=== PATIENT | female | born 1950 ===

== ENCOUNTER 2017-10-30 10:40 | Inpatient (IN) | payer OTHER ==
--- NOTE | 2017-10-30 10:51 | C.PDOC ---
History Of Present Illness 67-year-old female, PMHx includes appendectomy, presents to the emergency department with complaints of right sided abdominal pain ongoing for the past five days, associated with nausea. Pt notes abdominal pain is throbbing, and that she was sent in by PMD: Dr. Chester for further imaging and labs. Patient denies any vomiting, vaginal d/c, fever, symptoms, chills, back pain, chest pain or any other associated symptoms. no other complaints at this time. Time Seen by Provider: 10/30/17 10:50 Chief Complaint (Nursing): Abdominal Pain History Per: Patient History/Exam Limitations: no limitations Current Symptoms Are (Timing): Still Present Past Medical History Reviewed: Historical Data, Nursing Documentation, Vital Signs Vital Signs: Last Vital Signs Temp 98.2 F 10/30/17 21:52 Pulse 69 10/30/17 21:52 Resp 18 10/30/17 21:52 BP 153/74 H 10/30/17 21:52 Pulse Ox 96 10/30/17 21:52 - Medical History PMH: Arthritis, HTN, Hypercholesterolemia, Chronic Kidney Disease Surgical History: Appendectomy Family History: States: No Known Family Hx - Social History Hx Alcohol Use: No Hx Substance Use: No Review Of Systems Constitutional: Negative for: Fever Gastrointestinal: Positive for: Nausea, Abdominal Pain Musculoskeletal: Negative for: Back Pain Neurological: Negative for: Weakness, Numbness Physical Exam - Physical Exam Appears: Non-toxic, No Acute Distress Skin: Warm, Dry, No Rash Head: Atraumatic Eye(s): bilateral: Normal Inspection Nose: Normal Oral Mucosa: Moist Lips: Normal Appearing Neck: Normal ROM Chest: Symmetrical Cardiovascular: Rhythm Regular, No Murmur Respiratory: Normal Breath Sounds, No Accessory Muscle Use Gastrointestinal/Abdominal: Soft, Tenderness (RUQ, RLQ), No Guarding Extremity: Normal ROM, No Deformity Neurological/Psych: Oriented x3, Normal Speech ED Course And Treatment - Laboratory Results Result Diagrams: 10/30/17 11:09 10/30/17 11:09 O2 Sat by Pulse Oximetry: 100 Pulse Ox Interpretation: Normal (RA) - Other Rad US ABD X-Ray: Viewed By Me, Read By Radiologist Interpretation: Accession No. : [id number]. Patient Name / ID : TRUNG DOE / [id number]. Exam Date : 10/30/2017 11:42:56 ( Approved ). Study Comment : Sex / Age : F / 67Y. Creator : Yohana Anna MD. Dictator : Yohana Anna MD. Campus Ambassador : Coating Engineer : Yohana Anna MD. Approver2 : Report Date : 10/30/2017 12:31:14. My Comment : . Date of service: 10/30/2017. HISTORY: ruq pain. COMPARISON: None available. TECHNIQUE: Sonographic evaluation of the right upper quadrant of the abdomen. FINDINGS: LIVER: Measures 15.0 cm in length. Echogenic liver may be seen in setting of hepatic parenchymal disease or fatty infiltration. 5 mm punctate echogenic focus. No focal hepatic mass identified. The main portal vein appears patent with normal directional flow. No intrahepatic bile duct dilatation. GALLBLADDER: No gallstones. No gallbladder wall thickening or pericholecystic edema. Negative sonographic Lim's sign as assessed by the optical glass etcher. COMMON BILE DUCT: Measures 6 mm. PANCREAS: Not well- visualized. RIGHT KIDNEY: Measures cm in length. Normal echogenicity. No calculus, mass, or hydronephrosis. AORTA: Limited visualization of the aorta. Evidence of aneurysmal dilatation of the aorta with measurement of the aorta mid to distal portion approximately 3.4 x 3.8 x 3.1 cm and distal aorta measuring approximately 4.1 x 4.9 x 4.1 cm. Probable extensive thrombus identified involving the distal aorta. IVC: Limited visualization appears grossly unremarkable. OTHER FINDINGS: None . IMPRESSION: Evidence of aneurysmal dilatation of the aorta with measurement of the aorta mid to distal portion approximately 3.4 x 3.8 x 3.1 cm and distal aorta measuring approximately 4.1 x 4.9 x 4.1 cm. Probable extensive thrombus identified involving the distal aorta. Correlate clinically. CTA may be considered for further evaluation if indicated. - CT Scan/US CT ABD PEL Other Rad Studies (CT/US): Read By Radiologist, Radiology Report Reviewed CT/US Interpretation: Accession No. : [id number]. Patient Name / ID : TRUNG DOE / [id number]. Exam Date : 10/30/2017 14:27:13 ( Approved ) . Study Comment : Sex / Age : F / 67Y. Creator : Allison Oropeza. Dictator : Yohana Anna MD. Campus Ambassador : Coating Engineer : Yohana Anna MD. Approver2 : Report Date : 10/30/2017 14:41:41. My Comment : . Date of service: 10/30/17. CTA abdomen pelvis with contrast performed 10/30/17. Indication: Abnormal ultrasound. Comparison: Right upper quadrant ultrasound performed the same day. Technique: Contrast dose: 100 mL Visipaque 320. Total exam DLP: 511.19. Axial computed tomographic angiogram images of the abdomen and pelvis were performed after bolus administration of nonionic intravenous contrast. This CT exam was performed using 1 or more of the falling dose reduction techniques: Automated exposure control, adjustment of the MAA and/or kV according to patient size, and/or use of iterative reconstruction technique. Findings: Limited views of the inferior thorax demonstrates mild bibasilar atelectasis. Small hiatal hernia. 3.7 x 4.0 cm (AP x transverse) (series 3, image 34) aneurysm involving the proximal abdominal aorta. There is additional marked aneurysmal dilatation of the abdominal aorta just distal to the left renal artery takeoff. Aneurysm appears somewhat "Trilobed" spanning approximately 9.8 cm in CC dimension ; largest proximal portion measures approximately 3.6 x 4.1 cm (AP by transverse) and more distal portion measures approximately 4.5 x 5.2 cm. Extensive peripheral thrombus is evident throughout the abdominal aorta and aneurysm sacs. Extent atherosclerotic calcifications present. Bilateral proximal common iliac artery stents are present. Dense atherosclerotic calcifications including left common iliac artery. 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 Apparent aneurysmal dilatation of the superior mesenteric artery origin. The inferior mesenteric artery origin is not identified. Bilateral renal arteries appear patent. Hypoattenuation of the liver compatible with hepatic steatosis. Too small to characterize hepatic hypodensities; statistically likely cysts or hemangiomas. Contracted gallbladder appears otherwise unremarkable. The adrenal glands appear unremarkable. Pancreas appears unremarkable. Two tiny probable splenules, otherwise unremarkable spleen. The kidneys enhance symmetrically. No hydronephrosis or obstructing calculus identified. Probable small left renal cyst. No bulky adenopathy identified. Visualized bowel loops appear within normal limits of caliber without evidence of obstruction. The appendix appears normal. No inflammatory changes are seen in the right lower quadrant to suggest acute appendicitis. No definite free air. The urinary bladder appears unremarkable. The uterus is present with punctate calcifications and probable fibroid. No significant pelvic free fluid is identified. Osseous demineralization. Degenerative changes. Impression: Extensive aneurysmal dilatation involving the abdominal aorta as described above. Extensive peripheral thrombus and atherosclerotic calcifications evident throughout the abdominal aorta and aneurysm sacs. Bilateral common iliac artery stents are present. Dense atherosclerotic calcifications including left common iliac artery. 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 Apparent aneurysmal dilatation of the superior mesenteric artery origin. The inferior mesenteric artery origin is not identified. Recommend correlation with outside imaging to assess for stability of the above findings. Additional findings as above. Medical Decision Making Medical Decision Making: Well appearing 67 yr old female p/w abdominal pain w/ out acute diarrhea or complaints. Given RUQ And RLQ abdominal pain, and sent for primary for CT, will image. No vaginal d/c. No CP or SOB. Plan: * CT Abd/Pel * Bloodwork * US Abdomen * UA * Reassess and Disposition [address], w/ hx of illiac stents pt notes hx of illiac stents, had operation done at [facility] [place]. Does not know previous size of AAA. appreciate surgical consult Per nursing surgical services director- Dr. Orozco (vascular) will follow as consult inpatient we are to admit to medicine and send consult to medicine Dr. Saravanan sellers Per Dr. Coe- to admit to Jose R del rosario Per Dr. Jose R Del Rosario - we are to admit to Phyllis Karimi Appreciate consult w/ Dr. Phyllis Karimi- to admit to his service Disposition - Disposition Disposition: HOSPITALIZED Disposition Time: 20:00 Condition: GOOD - Clinical Impression Clinical Impression: AAA (abdominal aortic aneurysm) - Scribe Statement The provider has reviewed the documentation as recorded by the Scribe (Samantha Farfan) Provider Attestation: All medical record entries made by the Scribe were at my direction and personally dictated by me. I have reviewed the chart and agree that the record accurately reflects my personal performance of the history, physical exam, medical decision making, and the department course for this patient. I have also personally directed, reviewed, and agree with the discharge instructions and disposition.
[2017-10-30 11:14] LABS: BASO # 0.2 K/uL (0.0-0.2); BASO % 2.6 % (0.0-2.0); EOS # 0.2 K/uL (0.0-0.7); EOS % 2.1 % (0.0-4.0); HEMOGLOBIN 12.1 g/dL (11.0-16.0); LYMPH # 3.5 K/uL (1.0-4.3); LYMPH % 43.9 % (20.0-40.0); MEAN CORPUSCULAR HEMOGLOBIN 25.3 pg (27.0-31.0); MEAN CORPUSCULAR HGB CONC 32.9 g/dL (33.0-37.0); MEAN PLATELET VOLUME 8.9 fL (7.2-11.7); MONO # 0.5 K/uL (0.0-0.8); MONO % 5.9 % (0.0-10.0); NEUT # 3.6 K/uL (1.8-7.0); NEUT % 45.5 % (50.0-75.0); RBC 4.78 Mil/uL (3.80-5.20); RED CELL DISTRIBUTION WIDTH 14.7 % (11.5-14.5)
[2017-10-30 11:31] LABS: URINE BACTERIA RARE (<OCC)
[2017-10-30 11:33] LABS: URINE BILIRUBIN NEGATIVE (NEGATIVE); URINE CLARITY Clear (Clear); URINE COLOR YELLOW (YELLOW); URINE GLUCOSE (UA) NEGATIVE (Normal)
[2017-10-30 11:34] LABS: URINE BLOOD NEGATIVE (NEGATIVE); URINE LEUKOCYTE ESTERASE TRACE Leu/uL (Negative); URINE PROTEIN NEGATIVE (NEGATIVE); URINE UROBILINOGEN 0.2 mg/dL (0.2-1.0)
[2017-10-30 11:55] LABS: ALB/GLOB RATIO 1.5 (1.0-2.1); ALBUMIN 4.6 g/dL (3.5-5.0); ALT/SGPT 21 U/L (9-52); AST/SGOT 21 U/L (14-36); BLOOD UREA NITROGEN 20 mg/dL (7-17); CALCIUM 10.5 mg/dl (8.6-10.4); GFR NON-AFRICAN AMERICAN 55; LIPASE 114 U/L (23-300)
[2017-10-30] MEDS ORDERED: Magnesium Sulfate 1 gm in D5W 1 GM/100 ML BAG IVPB ONE ×2 (12:26→12:55)
--- NOTE | 2017-10-30 12:33 | US ---
Date of service: 10/30/2017 HISTORY: ruq pain COMPARISON: None available TECHNIQUE: Sonographic evaluation of the right upper quadrant of the abdomen. FINDINGS: LIVER: Measures 15.0 cm in length. Echogenic liver may be seen in setting of hepatic parenchymal disease or fatty infiltration. 5 mm punctate echogenic focus. No focal hepatic mass identified. The main portal vein appears patent with normal directional flow. No intrahepatic bile duct dilatation. GALLBLADDER: No gallstones. No gallbladder wall thickening or pericholecystic edema. Negative sonographic Lim's sign as assessed by the nuclear physician. COMMON BILE DUCT: Measures 6 mm. PANCREAS: Not well-visualized. RIGHT KIDNEY: Measures cm in length. Normal echogenicity. No calculus, mass, or hydronephrosis. AORTA: Limited visualization of the aorta. Evidence of aneurysmal dilatation of the aorta with measurement of the aorta mid to distal portion approximately 3.4 x 3.8 x 3.1 cm and distal aorta measuring approximately 4.1 x 4.9 x 4.1 cm. Probable extensive thrombus identified involving the distal aorta. IVC: Limited visualization appears grossly unremarkable. OTHER FINDINGS: None . IMPRESSION: Evidence of aneurysmal dilatation of the aorta with measurement of the aorta mid to distal portion approximately 3.4 x 3.8 x 3.1 cm and distal aorta measuring approximately 4.1 x 4.9 x 4.1 cm. Probable extensive thrombus identified involving the distal aorta. Correlate clinically. CTA may be considered for further evaluation if indicated.
[2017-10-30] MEDS ORDERED: Iodixanol 320 mg/ml 150 ml Bottle IV ONE (13:36)
--- NOTE | 2017-10-30 15:58 | CT ---
Date of service: 10/30/17 CTA abdomen pelvis with contrast performed 10/30/17 Indication: Abnormal ultrasound Comparison: Right upper quadrant ultrasound performed the same day. Technique: Contrast dose: 100 mL Visipaque 320 Total exam DLP: 511.19 Axial computed tomographic angiogram images of the abdomen and pelvis were performed after bolus administration of nonionic intravenous contrast. This CT exam was performed using 1 or more of the falling dose reduction techniques: Automated exposure control, adjustment of the MAA and/or kV according to patient size, and/or use of iterative reconstruction technique. Findings: Limited views of the inferior thorax demonstrates mild bibasilar atelectasis. Small hiatal hernia. 3.7 x 4.0 cm (AP x transverse) (series 3, image 34) aneurysm involving the proximal abdominal aorta. There is additional marked aneurysmal dilatation of the abdominal aorta just distal to the left renal artery takeoff. Aneurysm appears somewhat "Trilobed" spanning approximately 9.8 cm in CC dimension ; largest proximal portion measures approximately 3.6 x 4.1 cm (AP by transverse) and more distal portion measures approximately 4.5 x 5.2 cm. Extensive peripheral thrombus is evident throughout the abdominal aorta and aneurysm sacs. Extent atherosclerotic calcifications present. Bilateral proximal common iliac artery stents are present. Dense atherosclerotic calcifications including left common iliac artery. 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 Apparent aneurysmal dilatation of the superior mesenteric artery origin. The inferior mesenteric artery origin is not identified. Bilateral renal arteries appear patent. Hypoattenuation of the liver compatible with hepatic steatosis. Too small to characterize hepatic hypodensities; statistically likely cysts or hemangiomas. Contracted gallbladder appears otherwise unremarkable. The adrenal glands appear unremarkable. Pancreas appears unremarkable. Two tiny probable splenules, otherwise unremarkable spleen. The kidneys enhance symmetrically. No hydronephrosis or obstructing calculus identified. Probable small left renal cyst. No bulky adenopathy identified. Visualized bowel loops appear within normal limits of caliber without evidence of obstruction. The appendix appears normal. No inflammatory changes are seen in the right lower quadrant to suggest acute appendicitis. No definite free air. The urinary bladder appears unremarkable. The uterus is present with punctate calcifications and probable fibroid. No significant pelvic free fluid is identified. Osseous demineralization. Degenerative changes. Impression: Extensive aneurysmal dilatation involving the abdominal aorta as described above. Extensive peripheral thrombus and atherosclerotic calcifications evident throughout the abdominal aorta and aneurysm sacs. Bilateral common iliac artery stents are present. Dense atherosclerotic calcifications including left common iliac artery. 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 Apparent aneurysmal dilatation of the superior mesenteric artery origin. The inferior mesenteric artery origin is not identified. Recommend correlation with outside imaging to assess for stability of the above findings. Additional findings as above.
--- NOTE | 2017-10-30 17:38 | CP.PCM.CON ---
History of Present Illness - History of Present Illness History of Present Illness: PGY-1 vasc surgery note for Dr Toth CC: abdominal pain, AAA by U/S Patient is 67 year old Female with pmhx of AAA, DM, HTN, HLD, gastritis and arthritis that is consulted for abdominal pain. Patient was sent from her primary Dr Coe to the ER. Patient reports her pain started about 2 weeks ago, described more like a gas pain. Patient started experiencing a RLQ pain that started about 5-6 days ago. Patient reports feeling pain in the right inguinal area and right buttocks. Patient admits to nausea and vomiting last night. Patient had nausea since the abdominal pain began two weeks ago. Patient admits to normal bowel movements. Patient denies any urinary problems. Patient denies headache or dizziness. Patient had bilateral iliac artery stents placed 5 years ago. PMD: Dr Coe Pmhx: AAA, DM, HTN, HLD, gastritis Shx: appendectomy, b/l iliac artery stents All: nkda Sochx: admits to smoking 4 cigarettes x 40 years. denies alcohol or illicit drug use Review of Systems - Review of Systems Review of Systems: as indicated in HPI Past Patient History - Past Social History Smoking Status: Light Smoker < 10 Cigarettes Daily - CARDIAC Hx Hypercholesterolemia: Yes Hx Hypertension: Yes - RENAL Hx Chronic Kidney Disease: Yes - ENDOCRINE/METABOLIC Hx Endocrine Disorders: Yes Hx Diabetes Mellitus Type 2: Yes - MUSCULOSKELETAL/RHEUMATOLOGICAL Hx Arthritis: Yes - PSYCHIATRIC Hx Substance Use: No - SURGICAL HISTORY Hx Appendectomy: Yes Meds Allergies/Adverse Reactions: Allergies Allergy/AdvReac Type Severity Reaction Status Date / Time No Known Allergies Allergy Verified 10/30/17 10:48 Physical Exam - Constitutional Appears: Non-toxic, No Acute Distress - Head Exam Head Exam: ATRAUMATIC, NORMAL INSPECTION, NORMOCEPHALIC - Eye Exam Eye Exam: EOMI, Normal appearance - ENT Exam ENT Exam: Mucous Membranes Moist, Normal Exam - Neck Exam Neck exam: Positive for: Normal Inspection - Respiratory Exam Respiratory Exam: NORMAL BREATHING PATTERN. absent: Accessory Muscle Use, Respiratory Distress - GI/Abdominal Exam GI & Abdominal Exam: Soft. absent: Distended, Tenderness Additional comments: left abdominal quadrant palpable aneurysm - Extremities Exam Extremities exam: Positive for: full ROM, normal inspection - Back Exam Back exam: NORMAL INSPECTION - Neurological Exam Neurological exam: Alert, Oriented x3 - Psychiatric Exam Psychiatric exam: Normal Affect, Normal Mood - Skin Skin Exam: Normal Color, Warm Results - Vital Signs Recent Vital Signs: Last Vital Signs Temp 98.2 F 10/30/17 10:44 Pulse 85 10/30/17 14:51 Resp 16 10/30/17 14:51 BP 139/56 L 10/30/17 14:51 Pulse Ox 100 10/30/17 17:24 - Labs Result Diagrams: 10/30/17 11:09 10/30/17 11:09 Labs: Laboratory Results - last 24 hr 10/30/17 10/30/17 10/30/17 11:09 11:09 11:09 WBC 8.0 RBC 4.78 Hgb 12.1 Hct 36.8 MCV 77.0 L MCH 25.3 L MCHC 32.9 L RDW 14.7 H Plt Count 268 MPV 8.9 Neut % (Auto) 45.5 L Lymph % (Auto) 43.9 H [place] % (Auto) 5.9 Eos % (Auto) 2.1 Baso % (Auto) 2.6 H Neut # (Auto) 3.6 Lymph # (Auto) 3.5 [place] # (Auto) 0.5 Eos # (Auto) 0.2 Baso # (Auto) 0.2 Sodium 138 Potassium 3.3 L Chloride 94 L Carbon Dioxide 30 Anion Gap 18 BUN 20 H Creatinine 1.0 Est GFR ( Amer) > 60 Est GFR (Non-Af Amer) 55 Random Glucose 151 H Calcium 10.5 H Magnesium 0.8 L* Total Bilirubin 0.5 AST 21 ALT 21 Alkaline Phosphatase 79 Total Protein 7.7 Albumin 4.6 Globulin 3.1 Albumin/Globulin Ratio 1.5 Lipase 114 Urine Color Yellow Urine Clarity Clear Urine pH 6.0 Ur Specific [place] 1.015 Urine Protein Negative Urine Glucose (UA) Negative Urine Ketones Negative Urine Blood Negative Urine Nitrate Negative Urine Bilirubin Negative Urine Urobilinogen 0.2 Ur Leukocyte Esterase Trace H Urine RBC (Auto) < 1 Urine Bacteria Rare Assessment & Plan - Assessment and Plan (Free Text) Assessment: 67 year old female with pmhx HTN, DM, HLD with trilobed AAA by U/S largest proximal portion measures approximately 3.6x 4.1 cm, more distal portion measuring 4.5 x 5.2cm Plan: - Follow up CT angio - Will make further recommendations after CT angio - Likely need non-emergent endovascular intervention for AAA - Cardiac and medical clearance - medical management as per medical team Plan discussed with Dr Janey Brand, PGY-1 - Date & Time Date: 10/30/17 Time: 17:38
--- NOTE | 2017-10-30 18:13 | CP.PCM.CON ---
Past Patient History - Past Social History Smoking Status: Light Smoker < 10 Cigarettes Daily - CARDIAC Hx Hypercholesterolemia: Yes Hx Hypertension: Yes - RENAL Hx Chronic Kidney Disease: Yes - ENDOCRINE/METABOLIC Hx Endocrine Disorders: Yes Hx Diabetes Mellitus Type 2: Yes - MUSCULOSKELETAL/RHEUMATOLOGICAL Hx Arthritis: Yes - PSYCHIATRIC Hx Substance Use: No - SURGICAL HISTORY Hx Appendectomy: Yes Meds Allergies/Adverse Reactions: Allergies Allergy/AdvReac Type Severity Reaction Status Date / Time No Known Allergies Allergy Verified 10/30/17 10:48 Results - Vital Signs Recent Vital Signs: Last Vital Signs Temp 98.2 F 10/30/17 10:44 Pulse 85 10/30/17 14:51 Resp 16 10/30/17 14:51 BP 139/56 L 10/30/17 14:51 Pulse Ox 100 10/30/17 17:52 - Labs Result Diagrams: 10/30/17 11:09 10/30/17 11:09 Labs: Laboratory Results - last 24 hr 10/30/17 10/30/17 10/30/17 11:09 11:09 11:09 WBC 8.0 RBC 4.78 Hgb 12.1 Hct 36.8 MCV 77.0 L MCH 25.3 L MCHC 32.9 L RDW 14.7 H Plt Count 268 MPV 8.9 Neut % (Auto) 45.5 L Lymph % (Auto) 43.9 H [place] % (Auto) 5.9 Eos % (Auto) 2.1 Baso % (Auto) 2.6 H Neut # (Auto) 3.6 Lymph # (Auto) 3.5 [place] # (Auto) 0.5 Eos # (Auto) 0.2 Baso # (Auto) 0.2 Sodium 138 Potassium 3.3 L Chloride 94 L Carbon Dioxide 30 Anion Gap 18 BUN 20 H Creatinine 1.0 Est GFR ( Amer) > 60 Est GFR (Non-Af Amer) 55 Random Glucose 151 H Calcium 10.5 H Magnesium 0.8 L* Total Bilirubin 0.5 AST 21 ALT 21 Alkaline Phosphatase 79 Total Protein 7.7 Albumin 4.6 Globulin 3.1 Albumin/Globulin Ratio 1.5 Lipase 114 Urine Color Yellow Urine Clarity Clear Urine pH 6.0 Ur Specific [place] 1.015 Urine Protein Negative Urine Glucose (UA) Negative Urine Ketones Negative Urine Blood Negative Urine Nitrate Negative Urine Bilirubin Negative Urine Urobilinogen 0.2 Ur Leukocyte Esterase Trace H Urine RBC (Auto) < 1 Urine Bacteria Rare
--- NOTE | 2017-10-31 08:41 | CP.PCM.PN ---
Subjective - Date & Time of Evaluation Date of Evaluation: 10/31/17 Time of Evaluation: 08:35 - Subjective Subjective: Surgery Pt seen and examined. No acute events. c/o abd pain. CTA taken. Denies weakness , back pain, GI bleeding. Objective - Vital Signs/Intake and Output Vital Signs (last 24 hours): Temp Pulse Resp BP Pulse Ox 98.4 F 56 L 20 122/65 95 10/30/17 23:15 10/31/17 08:01 10/30/17 23:15 10/30/17 23:15 10/30/17 23:15 - Medications Medications: Current Medications Clopidogrel Bisulfate (Plavix) 75 mg PO DAILY FRANKY Metformin HCl (Glucophage) 1,000 mg PO BID FRANKY Metoprolol Succinate (Toprol Xl) 25 mg PO DAILY FRANKY Potassium Chloride (K-Dur 20 Meq Er Tab) 40 meq PO BRK FRANKY Rosuvastatin Calcium (Crestor) 10 mg PO HS FRANKY Last Admin: 10/30/17 22:12 Dose: 10 mg - Labs Labs: 10/30/17 11:09 10/30/17 11:09 - Constitutional Appears: No Acute Distress - Head Exam Head Exam: ATRAUMATIC, NORMAL INSPECTION, NORMOCEPHALIC - Eye Exam Eye Exam: EOMI, Normal appearance, PERRL Pupil Exam: NORMAL ACCOMODATION, PERRL - ENT Exam ENT Exam: Mucous Membranes Moist, Normal Exam - Neck Exam Neck Exam: Full ROM, Normal Inspection. absent: Lymphadenopathy - Respiratory Exam Respiratory Exam: NORMAL BREATHING PATTERN - Cardiovascular Exam Cardiovascular Exam: REGULAR RHYTHM, +S1, +S2. absent: Murmur - GI/Abdominal Exam GI & Abdominal Exam: Soft, Tenderness, Pulsatile Mass. absent: Distended, Firm , Guarding, Rigid - Exam Exam: NORMAL INSPECTION - Extremities Exam Extremities Exam: Full ROM, Normal Capillary Refill, Normal Inspection. absent : Joint Swelling, Pedal Edema - Back Exam Back Exam: NORMAL INSPECTION - Neurological Exam Neurological Exam: Alert, Awake, CN II-XII Intact, Normal Gait, Oriented x3 - Psychiatric Exam Psychiatric exam: Normal Affect, Normal Mood - Skin Skin Exam: Dry, Intact, Normal Color, Warm Assessment and Plan - Assessment and Plan (Free Text) Assessment: 67 year old female with pmhx HTN, DM, HLD with trilobed AAA by U/S largest proximal portion measures approximately 3.6x 4.1 cm, more distal portion measuring 4.[address]: Trilobed 10cm length, 4.5x5.2 , 3.6x4.1cm w extensive thrombus. b/l iliac stent. TAMIE not identified. Plan: -Smoking Cessation - Likely need non-emergent vascular intervention for AAA - Cardiac and medical clearance - medical management as per medical team Will discuss with Dr Toth
[2017-10-31] MEDS: Potassium Chloride 20 mEq ER Tab PO SCH (08:47)
[2017-10-31] MEDS: Metoprolol Succinate 25 mg XL Tab PO SCH (10:21)
[2017-10-31 12:58] LABS: ALB/GLOB RATIO 1.3 (1.0-2.1); ALBUMIN 4.4 g/dL (3.5-5.0); ALT/SGPT 19 U/L (9-52); AST/SGOT 19 U/L (14-36); BLOOD UREA NITROGEN 19 mg/dL (7-17); CALCIUM 10.8 mg/dl (8.6-10.4); GFR NON-AFRICAN AMERICAN > 60
[2017-10-31 14:35] LABS: BASO % 0.3 % (0.0-2.0); EOS # 0.1 K/uL (0.0-0.7); EOS % 2.2 % (0.0-4.0); HEMOGLOBIN 11.8 g/dL (11.0-16.0); LYMPH % 48.2 % (20.0-40.0); MEAN CELL VOLUME 76.9 fL (81.0-99.0); MEAN CORPUSCULAR HEMOGLOBIN 25.6 pg (27.0-31.0); MEAN CORPUSCULAR HGB CONC 33.3 g/dL (33.0-37.0); MEAN PLATELET VOLUME 9.4 fL (7.2-11.7); MONO # 0.4 K/uL (0.0-0.8); MONO % 6.7 % (0.0-10.0); NEUT # 2.7 K/uL (1.8-7.0); NEUT % 42.6 % (50.0-75.0); NRBC % 0.1 % (0.0-2.0); RBC 4.62 Mil/uL (3.80-5.20); RED CELL DISTRIBUTION WIDTH 14.9 % (11.5-14.5); WHITE BLOOD COUNT 6.2 K/uL (4.8-10.8)
[2017-10-31] MEDS: Magnesium Sulfate 1 gm in D5W 1 GM/100 ML BAG IVPB SCH ×4 (14:36→18:22)
--- NOTE | 2017-10-31 14:41 | CP.PCM.PN ---
Subjective - Date & Time of Evaluation Date of Evaluation: 10/31/17 Time of Evaluation: 11:45 - Subjective Subjective: clinically same Objective - Vital Signs/Intake and Output Vital Signs (last 24 hours): Temp Pulse Resp BP Pulse Ox 97.7 F 76 18 137/60 94 L 10/31/17 06:00 10/31/17 12:00 10/31/17 06:00 10/31/17 06:00 10/31/17 06:00 - Medications Medications: Current Medications Clopidogrel Bisulfate (Plavix) 75 mg PO DAILY [facility] Last Admin: 10/31/17 10:20 Dose: 75 mg Magnesium Sulfate/Dextrose (Magnesium Sulfate 1 Gm/100 Ml D5w) 1 gm in 100 mls @ 100 mls/hr IVPB Q1H [facility] Stop: 10/31/17 18:29 Last Admin: 10/31/17 14:36 Dose: 100 mls/hr Metformin HCl (Glucophage) 1,000 mg PO BID [facility] Last Admin: 10/31/17 10:20 Dose: 1,000 mg Metoprolol Succinate (Toprol Xl) 25 mg PO DAILY [facility] Last Admin: 10/31/17 10:21 Dose: 25 mg Potassium Chloride (K-Dur 20 Meq Er Tab) 40 meq PO BRK [facility] Last Admin: 10/31/17 08:47 Dose: 40 meq Rosuvastatin Calcium (Crestor) 10 mg PO HS [facility] Last Admin: 10/30/17 22:12 Dose: 10 mg - Labs Labs: 10/31/17 14:28 10/31/17 12:20 - Constitutional Appears: Well - Head Exam Head Exam: ATRAUMATIC, NORMAL INSPECTION, NORMOCEPHALIC - Eye Exam Eye Exam: EOMI, Normal appearance, PERRL Pupil Exam: NORMAL ACCOMODATION, PERRL - ENT Exam ENT Exam: Mucous Membranes Moist, Normal Exam - Neck Exam Neck Exam: Full ROM, Normal Inspection. 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 Vascular surgeon has requested patient to go to either [facility] or [facility] Continue beta-estee Continue metformin Continue Plavix Continue rosuvastatin KCl supplementations Patient's dimension is 5.2 cm Vascular surgeon for the AAA
--- NOTE | 2017-10-31 16:08 | CP.PCM.PN ---
Subjective - Date & Time of Evaluation Date of Evaluation: 10/31/17 Time of Evaluation: 11:45 - Subjective Subjective: clinically same Objective - Vital Signs/Intake and Output Vital Signs (last 24 hours): Temp Pulse Resp BP Pulse Ox 98 F 64 20 127/66 97 10/31/17 15:00 10/31/17 15:00 10/31/17 15:00 10/31/17 15:00 10/31/17 15:00 - Medications Medications: Current Medications Clopidogrel Bisulfate (Plavix) 75 mg PO DAILY [facility] Last Admin: 10/31/17 10:20 Dose: 75 mg Magnesium Sulfate/Dextrose (Magnesium Sulfate 1 Gm/100 Ml D5w) 1 gm in 100 mls @ 100 mls/hr IVPB Q1H [facility] Stop: 10/31/17 18:29 Last Admin: 10/31/17 15:48 Dose: 100 mls/hr Metformin HCl (Glucophage) 1,000 mg PO BID [facility] Last Admin: 10/31/17 10:20 Dose: 1,000 mg Metoprolol Succinate (Toprol Xl) 25 mg PO DAILY [facility] Last Admin: 10/31/17 10:21 Dose: 25 mg Potassium Chloride (K-Dur 20 Meq Er Tab) 40 meq PO BRK [facility] Last Admin: 10/31/17 08:47 Dose: 40 meq Rosuvastatin Calcium (Crestor) 10 mg PO HS [facility] Last Admin: 10/30/17 22:12 Dose: 10 mg - Labs Labs: 10/31/17 14:28 10/31/17 12:20 - Constitutional Appears: Well - Head Exam Head Exam: ATRAUMATIC, NORMAL INSPECTION, NORMOCEPHALIC - Eye Exam Eye Exam: EOMI, Normal appearance, PERRL Pupil Exam: NORMAL ACCOMODATION, PERRL - ENT Exam ENT Exam: Mucous Membranes Moist, Normal Exam - Neck Exam Neck Exam: Full ROM, Normal Inspection. absent: Lymphadenopathy - Respiratory Exam Respiratory Exam: Decreased Breath Sounds - Cardiovascular Exam Cardiovascular Exam: REGULAR RHYTHM, +S1, +S2 - GI/Abdominal Exam GI & Abdominal Exam: Soft, Diminished Bowel Sounds - Rectal Exam Rectal Exam: Deferred
[2017-11-01] MEDS ORDERED: Iodixanol 320 mg/ml 150 ml Bottle IV ONE (08:42)
[2017-11-01] MEDS: Potassium Chloride 20 mEq ER Tab PO SCH (08:44)
[2017-11-01] MEDS: Metoprolol Succinate 25 mg XL Tab PO SCH (10:34)
[2017-11-01 12:08] LABS: BASO % 0.2 % (0.0-2.0); EOS # 0.1 K/uL (0.0-0.7); EOS % 1.7 % (0.0-4.0); HEMOGLOBIN 11.5 g/dL (11.0-16.0); LYMPH # 2.2 K/uL (1.0-4.3); LYMPH % 37.6 % (20.0-40.0); MEAN CELL VOLUME 76.8 fL (81.0-99.0); MEAN CORPUSCULAR HEMOGLOBIN 25.3 pg (27.0-31.0); MEAN CORPUSCULAR HGB CONC 32.9 g/dL (33.0-37.0); MEAN PLATELET VOLUME 9.4 fL (7.2-11.7); MONO # 0.5 K/uL (0.0-0.8); MONO % 7.8 % (0.0-10.0); NEUT # 3.1 K/uL (1.8-7.0); NEUT % 52.7 % (50.0-75.0); RBC 4.57 Mil/uL (3.80-5.20); RED CELL DISTRIBUTION WIDTH 14.7 % (11.5-14.5); WHITE BLOOD COUNT 5.8 K/uL (4.8-10.8)
[2017-11-01 12:37] LABS: ALB/GLOB RATIO 1.5 (1.0-2.1); ALBUMIN 4.3 g/dL (3.5-5.0); ALT/SGPT 20 U/L (9-52); AST/SGOT 23 U/L (14-36); BLOOD UREA NITROGEN 16 mg/dL (7-17); CALCIUM 10.2 mg/dl (8.6-10.4); GFR NON-AFRICAN AMERICAN > 60
--- NOTE | 2017-11-01 14:12 | CP.PCM.PN ---
Subjective - Date & Time of Evaluation Date of Evaluation: 11/01/17 Time of Evaluation: 11:45 - Subjective Subjective: clinically same Objective - Vital Signs/Intake and Output Vital Signs (last 24 hours): Temp Pulse Resp BP Pulse Ox 97.8 F 69 20 138/72 95 11/01/17 07:50 11/01/17 07:50 11/01/17 07:50 11/01/17 07:50 11/01/17 07:50 - Medications Medications: Current Medications Clopidogrel Bisulfate (Plavix) 75 mg PO DAILY [facility] Last Admin: 11/01/17 10:34 Dose: 75 mg Glimepiride (Amaryl) 1 mg PO BIDAC [facility] Home Med (Home Med) 1 unit PO HS [facility] Home Med (Home Med) 1 unit PO DAILY [facility] Hydrochlorothiazide (Hydrodiuril) 25 mg PO DAILY [facility] Magnesium Sulfate/Dextrose (Magnesium Sulfate 1 Gm/100 Ml D5w) 1 gm in 100 mls @ 100 mls/hr IVPB Q1H [facility] Stop: 11/01/17 18:29 Lactulose (Enulose) 20 gm PO BID PRN PRN Reason: Constipation Losartan Potassium (Cozaar) 100 mg PO DAILY [facility] Metformin HCl (Glucophage) 1,000 mg PO BID [facility] Last Admin: 10/31/17 10:20 Dose: 1,000 mg Metoprolol Succinate (Toprol Xl) 25 mg PO DAILY [facility] Last Admin: 11/01/17 10:34 Dose: 25 mg Montelukast Sodium (Singulair) 10 mg PO [facility] Potassium Chloride (K-Dur 20 Meq Er Tab) 40 meq PO BRK [facility] Last Admin: 11/01/17 08:44 Dose: 40 meq Rosuvastatin Calcium (Crestor) 10 mg PO HS [facility] Last Admin: 10/31/17 21:21 Dose: 10 mg Sitagliptin Phosphate (Januvia) 50 mg PO BID [facility] - Labs Labs: 11/01/17 11:51 11/01/17 11:51 - Constitutional Appears: Well - Head Exam Head Exam: ATRAUMATIC, NORMAL INSPECTION, NORMOCEPHALIC - Eye Exam Eye Exam: EOMI, Normal appearance, PERRL Pupil Exam: NORMAL ACCOMODATION, PERRL - ENT Exam ENT Exam: Mucous Membranes Moist, Normal Exam - Neck Exam Neck Exam: Full ROM, Normal Inspection. absent: Lymphadenopathy - Respiratory Exam Respiratory Exam: Decreased Breath Sounds - Cardiovascular Exam Cardiovascular Exam: REGULAR RHYTHM, +S1, +S2 - GI/Abdominal Exam GI & Abdominal Exam: Soft, Diminished Bowel Sounds - Rectal Exam Rectal Exam: Deferred Assessment and Plan - Assessment and Plan (Free Text) Plan: A CT angios done today is pending Will discuss with Dr. Turner for discharge Continue same Medications reviewed Continue metformin Status post potassium Will give SCD no Lovenox As ordered
[2017-11-01] MEDS: Magnesium Sulfate 1 gm in D5W 1 GM/100 ML BAG IVPB SCH ×4 (14:14→20:25)
[2017-11-01] MEDS ORDERED: LEVOCETIRIZINE 5 MG PO SCH (22:00)
[2017-11-02 02:08] VITALS: RESP 20
[2017-11-02] MEDS: Potassium Chloride 20 mEq ER Tab PO SCH (08:33)
[2017-11-02] MEDS ORDERED: TRADJENTA 5 MG PO SCH (10:00)
[2017-11-02] MEDS: Metoprolol Succinate 25 mg XL Tab PO SCH (10:20)
--- NOTE | 2017-11-02 11:04 | CT ---
Date of service: 11/01/2017 PROCEDURE: CT Angiography Abdomen, Pelvis and Lower Extremity with Contrast HISTORY: AAA COMPARISON: None available. TECHNIQUE: Technique: CT angiography of the abdomen, pelvis and bilateral lower extremities performed in the arterial phase of enhancement. Coronal and sagittal reformats, and well as rotating MIP images of the vessels generated at the workstation. Intravenous contrast dose: 150 milliliters Visipaque 320 Radiation dose: Total exam DLP = 1144.48 MGy-cm. This CT exam was performed using one or more of the following dose reduction techniques: Automated exposure control, adjustment of the mA and/or kV according to patient size, and/or use of iterative reconstruction technique. FINDINGS: CT ANGIOGRAPHY: ABDOMINAL AORTA:: The suprarenal aorta measures 4.1 centimeter maximal dimension. At the level of the superior mesenteric artery, there is a focal outpouching of the aorta. The aneurysm in this level measures 4.3 centimeters. There is a bilobed infrarenal aortic aneurysm with the greatest cross-sectional measurement at the level proximal to the bifurcation measuring 4.9 centimeter. The infrarenal aortic aneurysm begins near the level of the left renal artery. Right common iliac artery endograft is patent. Previously stented left common iliac artery is patent. Left external iliac artery stent is also patent. MAJOR AORTIC BRANCHES: Celiac Jaffrey: Unremarkable. Superior mesenteric artery: Unremarkable. Inferior mesenteric artery: Unremarkable. Renal arteries: Unremarkable. PELVIC ARTERIES: Right Common Iliac: Right common iliac artery endograft is patent. Right External Iliac: Unremarkable. Right Internal Iliac: Unremarkable. Left Common Iliac: Left common iliac artery stent is patent. Left External Iliac: Left external iliac artery stent is patent. Left Internal Iliac: Unremarkable. RIGHT LOWER EXTREMITY ARTERIES: Right Common Femoral: Moderate bulky calcific plaque posterior common femoral artery with moderate stenosis. Right Superficial Femoral: There is diffuse moderate plaque throughout the SFA with multiple areas of moderate stenosis. Right Profunda Femoris: Unremarkable. Right Popliteal:Unremarkable. Right Anterior Tibial: Unremarkable. Right Tibioperoneal Trunk: Unremarkable. Right Posterior Tibial: Occluded in the proximal segment. Right Peroneal: Unremarkable. Right dorsalis pedis : Unremarkable. LEFT LOWER EXTREMITY ARTERIES: Left Common Femoral: Mild calcific plaque with mild stenosis. Left Superficial Femoral: Moderate plaque throughout the SFA with multiple areas of [id number]-wtyhsplv stenosis. Left Profunda Femoris: Unremarkable. Left Popliteal: Unremarkable. Left Anterior Tibial: Unremarkable. Left Tibioperoneal Trunk: Unremarkable. Left Posterior Tibial: Unremarkable. Left Peroneal: Unremarkable. Left Dorsalis pedis: Unremarkable. NON-ANGIOGRAPHIC ASPECT OF THE EXAM: LOWER THORAX: Unremarkable. LIVER: Unremarkable. No gross lesion or ductal dilatation. GALLBLADDER AND BILE DUCTS: Unremarkable. PANCREAS: Unremarkable. No gross lesion or ductal dilatation. SPLEEN: Unremarkable. ADRENALS: Unremarkable. No mass. KIDNEYS AND URETERS: Unremarkable. No hydronephrosis. No solid mass. STOMACH AND BOWEL: Limited evaluation of PO contrast. No obstruction. No gross mural thickening. APPENDIX: Normal appendix. PERITONEUM: Unremarkable. No free fluid. No free air. LYMPH NODES: Unremarkable. No enlarged lymph nodes. BLADDER: Unremarkable. REPRODUCTIVE: Unremarkable. BONES: No acute fracture. OTHER FINDINGS: None. IMPRESSION: CT ANGIOGRAM ABDOMEN AND PELVIS: 1. Infrarenal aortic aneurysm beginning near the level of the left renal artery and is bilobed. The largest dimension is proximal to the bifurcation measuring 4.9 centimeters. 2. There is a outpouching of the aorta at the level of the superior mesenteric artery where the aorta measures 4.3 centimeter. 3. Endograft present within the right common iliac artery is patent. The left common iliac artery has been previously stented and is also patent. The left external iliac stent is patent. RIGHT LOWER EXTREMITY CT ANGIOGRAM: 1. Moderate to severe calcific plaque posterior common femoral artery with moderate stenosis. 2. There is diffuse moderate plaque throughout the SFA with multiple areas of moderate stenosis. 3. The popliteal artery is unremarkable. 4. Runoff shows a patent peroneal artery and anterior tibial artery. The posterior tibial artery occludes in the proximal segment with no reconstitution. LEFT LOWER EXTREMITY CT ANGIOGRAM: 1. Mild plaque in the common femoral artery with mild stenosis. 2. The plaque throughout the SFA with multiple areas of ghwi-bf-[id number] stenosis. 3. The popliteal artery is unremarkable. 4. Runoff shows patent 3 vessels.
[2017-11-02 12:36] LABS: BASO % 0.3 % (0.0-2.0); EOS # 0.1 K/uL (0.0-0.7); EOS % 2.2 % (0.0-4.0); HEMOGLOBIN 11.6 g/dL (11.0-16.0); LYMPH # 2.3 K/uL (1.0-4.3); LYMPH % 44.9 % (20.0-40.0); MEAN CELL VOLUME 77.4 fL (81.0-99.0); MEAN CORPUSCULAR HGB CONC 32.3 g/dL (33.0-37.0); MEAN PLATELET VOLUME 9.2 fL (7.2-11.7); MONO # 0.5 K/uL (0.0-0.8); MONO % 9.1 % (0.0-10.0); NEUT # 2.3 K/uL (1.8-7.0); NEUT % 43.5 % (50.0-75.0); NRBC % 0.1 % (0.0-2.0); RBC 4.63 Mil/uL (3.80-5.20); RED CELL DISTRIBUTION WIDTH 14.6 % (11.5-14.5); WHITE BLOOD COUNT 5.2 K/uL (4.8-10.8)
[2017-11-02 12:52] LABS: ALB/GLOB RATIO 1.5 (1.0-2.1); ALBUMIN 4.4 g/dL (3.5-5.0); ALT/SGPT 24 U/L (9-52); AST/SGOT 15 U/L (14-36); BLOOD UREA NITROGEN 13 mg/dL (7-17); CALCIUM 10.2 mg/dl (8.6-10.4); GFR NON-AFRICAN AMERICAN > 60
--- NOTE | 2017-11-02 15:24 | CP.PCM.PN ---
Subjective - Date & Time of Evaluation Date of Evaluation: 11/02/17 Time of Evaluation: 11:15 - Subjective Subjective: clinically same Objective - Vital Signs/Intake and Output Vital Signs (last 24 hours): Temp Pulse Resp BP Pulse Ox 97.7 F 62 20 128/69 99 11/02/17 07:05 11/02/17 12:00 11/02/17 07:05 11/02/17 07:05 11/02/17 07:05 Intake and Output: 11/02/17 11/02/17 06:59 18:59 Intake Total 720 Balance 720 - Medications Medications: Current Medications Clopidogrel Bisulfate (Plavix) 75 mg PO DAILY [facility] Last Admin: 11/02/17 10:20 Dose: 75 mg Glimepiride (Amaryl) 1 mg PO BIDAC [facility] Last Admin: 11/02/17 08:33 Dose: 1 mg Home Med (Patient's Own Medication) 1 tab PO HS [facility] Last Admin: 11/01/17 21:30 Dose: 1 tab Home Med (Patient's Own Medication) 1 tab PO DAILY [facility] Hydrochlorothiazide (Hydrodiuril) 25 mg PO DAILY [facility] Last Admin: 11/02/17 10:20 Dose: 25 mg Lactulose (Enulose) 20 gm PO BID PRN PRN Reason: Constipation Last Admin: 11/01/17 14:15 Dose: 20 gm Losartan Potassium (Cozaar) 100 mg PO DAILY [facility] Last Admin: 11/02/17 10:19 Dose: 100 mg Metformin HCl (Glucophage) 1,000 mg PO BID [facility] Last Admin: 10/31/17 10:20 Dose: 1,000 mg Metoprolol Succinate (Toprol Xl) 25 mg PO DAILY [facility] Last Admin: 11/02/17 10:20 Dose: 25 mg Montelukast Sodium (Singulair) 10 mg PO HS [facility] Last Admin: 11/01/17 21:24 Dose: 10 mg Potassium Chloride (K-Dur 20 Meq Er Tab) 40 meq PO BRK [facility] Last Admin: 11/02/17 08:33 Dose: 40 meq Rosuvastatin Calcium (Crestor) 10 mg PO HS [facility] Last Admin: 11/01/17 21:25 Dose: 10 mg - Labs Labs: 11/02/17 12:27 11/02/17 12:27 - Constitutional Appears: Well - Head Exam Head Exam: ATRAUMATIC, NORMAL INSPECTION, NORMOCEPHALIC - Eye Exam Eye Exam: EOMI, Normal appearance, PERRL Pupil Exam: NORMAL ACCOMODATION, PERRL - ENT Exam ENT Exam: Mucous Membranes Moist, Normal Exam - Neck Exam Neck Exam: Full ROM, Normal Inspection. absent: Lymphadenopathy - Respiratory Exam Respiratory Exam: Decreased Breath Sounds - Cardiovascular Exam Cardiovascular Exam: REGULAR RHYTHM, +S1, +S2 - GI/Abdominal Exam GI & Abdominal Exam: Soft, Diminished Bowel Sounds - Rectal Exam Rectal Exam: Deferred
[2017-11-02 16:14] VITALS: PULSE 84
--- NOTE | 2017-11-02 16:37 | CP.PCM.PN ---
Subjective - Date & Time of Evaluation Date of Evaluation: 11/02/17 Time of Evaluation: 16:37 - Subjective Subjective: PATIENT SEEN AND EXAMINED AT THE BEDSIDE Objective - Vital Signs/Intake and Output Vital Signs (last 24 hours): Temp Pulse Resp BP Pulse Ox 97.7 F 84 20 128/69 99 11/02/17 07:05 11/02/17 16:13 11/02/17 07:05 11/02/17 07:05 11/02/17 07:05 Intake and Output: 11/02/17 11/02/17 06:59 18:59 Intake Total 720 Balance 720 - Medications Medications: Current Medications Clopidogrel Bisulfate (Plavix) 75 mg PO DAILY [facility] Last Admin: 11/02/17 10:20 Dose: 75 mg Glimepiride (Amaryl) 1 mg PO BIDAC [facility] Last Admin: 11/02/17 08:33 Dose: 1 mg Home Med (Patient's Own Medication) 1 tab PO [facility] Last Admin: 11/01/17 21:30 Dose: 1 tab Home Med (Patient's Own Medication) 1 tab PO DAILY [facility] Hydrochlorothiazide (Hydrodiuril) 25 mg PO DAILY [facility] Last Admin: 11/02/17 10:20 Dose: 25 mg Lactulose (Enulose) 20 gm PO BID PRN PRN Reason: Constipation Last Admin: 11/01/17 14:15 Dose: 20 gm Losartan Potassium (Cozaar) 100 mg PO DAILY [facility] Last Admin: 11/02/17 10:19 Dose: 100 mg Metformin HCl (Glucophage) 1,000 mg PO BID [facility] Last Admin: 10/31/17 10:20 Dose: 1,000 mg Metoprolol Succinate (Toprol Xl) 25 mg PO DAILY [facility] Last Admin: 11/02/17 10:20 Dose: 25 mg Montelukast Sodium (Singulair) 10 mg PO HS [facility] Last Admin: 11/01/17 21:24 Dose: 10 mg Potassium Chloride (K-Dur 20 Meq Er Tab) 40 meq PO BRK [facility] Last Admin: 11/02/17 08:33 Dose: 40 meq Rosuvastatin Calcium (Crestor) 10 mg PO HS [facility] Last Admin: 11/01/17 21:25 Dose: 10 mg - Labs Labs: 11/02/17 12:27 11/02/17 12:27 Assessment and Plan - Assessment and Plan (Free Text) Assessment: FOLLOW UP WITH DR Phyllis MARTINEZ IN HIS OFFICE ---CALL FOR APPOINTMENT FOLLOW DR Haylee ARELLANO AND DR CORONEL GIVE A WRITTEN PRESCRIPTION AND TEL OF DR ARELLANO OR AAA is too close to b/l renal arteries. Recommend referral to vascular surgeons in (Dr. Hadley Brizuela) [facility] or [facility] who specialize in fenestrated aortic stent placement This procedure can be done elective outpatient basis No emergent intervention at this time CONTINUE HOME MEDICATION ACTIVITY TOLERATED CD IS PROVIDED CALL DR Phyllis MARTINEZ OR GO TO THE EMERGENCY ROOM IF SYMPTOMS RETURN OR WORSENING
[2017-11-02 18:13] VITALS: BP 128/67; TEMP 98.2; O2SAT 100
== END 2017-11-02 18:00 | disposition home or self-care (01) | DRG 301 ==
LOC: C.ER 10:40 → C.9E 17:25 → C.5S 20:29
PROVIDERS: ADMIT Internal Medicine Nephrology; ATTEND Internal Medicine Nephrology
DX: I71.4 Abdominal aortic aneurysm, without rupture (principal); I12.9 Hypertensive chronic kidney disease with stage 1 through stage 4 chronic kidney disease, or unspecified chronic kidney disease; N18.9 Chronic kidney disease, unspecified; E11.22 Type 2 diabetes mellitus with diabetic chronic kidney disease; E78.5 Hyperlipidemia, unspecified; E78.00 Pure hypercholesterolemia, unspecified; F17.210 Nicotine dependence, cigarettes, uncomplicated; M19.90 Unspecified osteoarthritis, unspecified site; Z90.49 Acquired absence of other specified parts of digestive tract